=== PATIENT | female | born 1995 | race Two or more races ===

== ENCOUNTER 2017-09-27 09:57 | Outpatient (CLI) | payer OTHER ==
--- NOTE | 2017-09-27 20:41 | RAD ---
CHEST 2 VIEWS: Date: 09/27/17 The heart is normal in size and the lungs are clear. There is no sign of active thoracic disease. No infiltrates or adenopathy could be seen. IMPRESSION: No acute thoracic finding. POS: HOME
== END 2017-09-27 09:58 | disposition home or self-care (01) ==
LOC: BURRAD 09:57
PROVIDERS: ATTEND Family Medicine
DX: R76.11 Nonspecific reaction to tuberculin skin test without active tuberculosis (principal)
CPT/HCPCS: 71046